=== PATIENT | male | born 1960 | race American Indian/Alaskan Native ===

== ENCOUNTER 2020-09-03 09:11 | Emergency (ER) | payer OTHER ==
[2020-09-03] MEDS ORDERED: methylPREDNISolone Sod Succinate 125 MG/2 ML INJ IV ONE (10:10)
[2020-09-03] MEDS ORDERED: IPRATROPIUM/ALBUTEROL SULFATE 3 ML AMPUL.NEB IH ONE ×2 (10:10→15:52)
--- NOTE | 2020-09-03 10:12 | Emergency Department Report ---
ED Chest Pain HPI - General Chief Complaint: Dyspnea/Respdistress Stated Complaint: CLIFTON Time Seen by Provider: 09/03/20 09:58 Source: patient Mode of arrival: Ambulatory Limitations: No Limitations - History of Present Illness Initial Comments: This is a 60-year-old -[place] male presents to the emergency department with complaint of a 2-day history of shortness of breath. Patient denies any chest pain but does say that the chest feels tight. He admits to some wheezing and mixed dry and productive cough. The patient says that he has chronic issues with sinus congestion. He was cleaning his grill 2 days ago and use some type of chemical that he says he inhaled and it caused a worsening of this recent shortness of breath. He tried some Sridevi and Tylenol for his symptoms without any relief. He is a tobacco smoker but denies any illicit drug use. He has a past medical history of hypertension and does present with elevated blood pressure. He said that he has not been taking his blood pressure medication for years but was previously on Diovan. No recent travel or sick contacts at home. He denies any fever, lower extremity swelling, nausea, vomiting, back pain or diaphoresis. Severity scale (0 -10): 8 - Related Data Previous Rx's Medication Instructions Recorded Last Taken Type Furosemide [Lasix] 20 mg PO QDAY #5 tablet 09/03/20 Unknown Rx hydrALAZINE [Apresoline TAB] 25 mg PO Q8HR #30 tab 09/03/20 Unknown Rx Allergies Allergy/AdvReac Type Severity Reaction Status Date / Time No Known Allergies Allergy Verified 09/03/20 09:20 Heart Score - HEART Score History: Slightly suspicious EKG: Normal Age: 45-65 Risk factors: 1-2 risk factors Troponin: < normal limit HEART Score: 2 - EKG Read Time Time EKG Completed: 09:53 EKG Read Time: 09:55 ED Review of Systems ROS: Stated complaint: CLIFTON Other details as noted in HPI Comment: All other systems reviewed and negative Constitutional: denies: chills, fever Eyes: denies: eye pain, vision change ENT: denies: ear pain, throat pain Respiratory: cough, shortness of breath Cardiovascular: chest pain (tightness). denies: palpitations, edema Gastrointestinal: denies: abdominal pain, vomiting Genitourinary: denies: dysuria, discharge Musculoskeletal: denies: back pain, arthralgia Skin: denies: rash, lesions Neurological: denies: headache, weakness ED Past Medical Hx - Past Medical History Hx Hypertension: Yes - Surgical History Hx Appendectomy: Yes Additional Surgical History: mcl - Social History Smoking Status: Never Smoker - Medications Home Medications: Home Medications Medication Instructions Recorded Confirmed Last Taken Type Furosemide [Lasix] 20 mg PO QDAY #5 tablet 09/03/20 Unknown Rx hydrALAZINE [Apresoline TAB] 25 mg PO Q8HR #30 tab 09/03/20 Unknown Rx ED Physical Exam - General Limitations: No Limitations - Other Other exam information: GENERAL: The patient is well-developed well-nourished. HENT: Normocephalic. Atraumatic. Patient has moist mucous membranes. EYES: Extraocular motions are intact. NECK: Supple. Trachea is midline. CHEST/LUNGS: Slightly coarse breath sounds. No tachypnea or accessory muscle use. There is no respiratory distress noted. HEART/CARDIOVASCULAR: Regular. There is no tachycardia. There is no murmur. ABDOMEN: Abdomen is soft, nontender. Patient has normal bowel sounds. Obese habitus. SKIN: Skin is warm and dry. 2+ pitting edema to the bilateral lower extremities. NEURO: The patient is awake, alert, and oriented. The patient is cooperative. The patient has no focal neurologic deficits. Normal speech. MUSCULOSKELETAL: There is no tenderness or deformity. There is no limitation range of motion. ED Course Vital Signs 09/03/20 09/03/20 09/03/20 09:28 10:18 10:37 Temperature 99.9 F H Pulse Rate 102 H Pulse Rate [ 87 Anterior Bilateral Throughout] Respiratory 24 26 H Rate Respiratory 26 H Rate [Anterior Bilateral Throughout] Blood Pressure 215/100 [Right] O2 Sat by Pulse 91 96 Oximetry 09/03/20 14:12 Temperature Pulse Rate 88 Pulse Rate [ Anterior Bilateral Throughout] Respiratory 24 Rate Respiratory Rate [Anterior Bilateral Throughout] Blood Pressure 160/110 [Right] O2 Sat by Pulse 99 Oximetry ALEXA score - Alexa Score Age > 65: (0) No Aspirin use within the Past 7 Days: (0) No 3 or more CAD Risk Factors: (0) No 2 or more Angina events in past 24 hrs: (1) Yes Known CAD with more than 50% Stenosis: (0) No Elevated Cardiac Markers: (0) No ST Deviation Greater than 0.5mm: (0) No ALEXA Score: 1 ED Medical Decision Making - Lab Data Result diagrams: 09/03/20 10:29 09/03/20 10:29 Lab Results 09/03/20 09/03/20 09/03/20 Range/Units 10:29 10:29 10:29 WBC 10.3 (4.5-11.0) K/mm3 RBC 4.49 (3.65-5.03) M/mm3 Hgb 13.0 (11.8-15.2) gm/dl Hct 39.3 (35.5-45.6) % MCV 88 (84-94) fl MCH 29 (28-32) pg MCHC 33 (32-34) % RDW 16.1 H (13.2-15.2) % Plt Count 187 (140-440) K/mm3 Lymph % (Auto) 8.7 L (13.4-35.0) % [place] % (Auto) 6.9 (0.0-7.3) % Eos % (Auto) 0.4 (0.0-4.3) % Baso % (Auto) 0.4 (0.0-1.8) % Lymph # (Auto) 0.9 L (1.2-5.4) K/mm3 [place] # (Auto) 0.7 (0.0-0.8) K/mm3 Eos # (Auto) 0.0 (0.0-0.4) K/mm3 Baso # (Auto) 0.0 (0.0-0.1) K/mm3 Seg Neutrophils % 83.6 H (40.0-70.0) % Seg Neutrophils # 8.6 H (1.8-7.7) K/mm3 D-Dimer 241.11 H (0-234) ng/mlDDU Sodium 137 (137-145) mmol/L Potassium 4.5 (3.6-5.0) mmol/L Chloride 102.8 (98-107) mmol/L Carbon Dioxide 25 (22-30) mmol/L Anion Gap 14 mmol/L BUN 16 (9-20) mg/dL Creatinine 1.4 H (0.8-1.3) mg/dL Estimated GFR > 60 ml/min BUN/Creatinine Ratio 11 % Glucose 96 (75-100) mg/dL Calcium 9.3 (8.4-10.2) mg/dL Troponin T < 0.010 (0.00-0.029) ng/mL NT-Pro-B Natriuret Pep 1431 H (0-900) pg/mL 09/03/20 Range/Units 13:42 WBC (4.5-11.0) K/mm3 RBC (3.65-5.03) M/mm3 Hgb (11.8-15.2) gm/dl Hct (35.5-45.6) % MCV (84-94) fl MCH (28-32) pg MCHC (32-34) % RDW (13.2-15.2) % Plt Count (140-440) K/mm3 Lymph % (Auto) (13.4-35.0) % [place] % (Auto) (0.0-7.3) % Eos % (Auto) (0.0-4.3) % Baso % (Auto) (0.0-1.8) % Lymph # (Auto) (1.2-5.4) K/mm3 [place] # (Auto) (0.0-0.8) K/mm3 Eos # (Auto) (0.0-0.4) K/mm3 Baso # (Auto) (0.0-0.1) K/mm3 Seg Neutrophils % (40.0-70.0) % Seg Neutrophils # (1.8-7.7) K/mm3 D-Dimer (0-234) ng/mlDDU Sodium (137-145) mmol/L Potassium (3.6-5.0) mmol/L Chloride (98-107) mmol/L Carbon Dioxide (22-30) mmol/L Anion Gap mmol/L BUN (9-20) mg/dL Creatinine (0.8-1.3) mg/dL Estimated GFR ml/min BUN/Creatinine Ratio % Glucose (75-100) mg/dL Calcium (8.4-10.2) mg/dL Troponin T < 0.010 (0.00-0.029) ng/mL NT-Pro-B Natriuret Pep (0-900) pg/mL - EKG Data EKG shows normal: sinus rhythm, axis (Left axis deviation), intervals, QRS complexes, ST-T waves Rate: normal - EKG Data When compared to previous EKG there are: previous EKG unavailable Interpretation: other (Sinus rhythm at 86 bpm, left axis deviation. No ST elevation MD.) - Radiology Data Radiology results: image reviewed interpreted by me: Chest x-ray shows some mild cardiomegaly. No pneumonia, pleural effusions, pneumothorax. - Medical Decision Making This patient presents to the emergency department with a few days of shortness of breath. Patient denies chest pain but does describe some tightness that seems like it is more respiratory in nature. The patient did not have any complaints of lower extremity swelling, however on examination the patient does have 2+ pitting edema to the bilateral lower extremities. Chest x-ray does not show any pneumonia, pleural effusions, pneumothorax, or any other acute process. EKG did not have any morphology consistent with ST elevation myocardial infarction. The patient's labs have been mostly unremarkable including CBC, metabolic panel, negative troponins x2, - D-dimer, but the patient did have an elevated proBNP of about 1400. The patient also presented with very elevated blood pressure. He does have a history of hypertension and admits to medication noncompliance over the past 2 to 3 years. This is also the last time that the patient followed up with a primary care physician regularly, despite the fact that he has [facility] insurance. He was given a breathing treatment and upon reevaluation says he is feeling greatly improved. He was given a dose of Lasix and has started to diurese. I spoke to Dr. Barragan, a physician at the [facility]. She agrees with the plan for restarting the patient on antihypertensive medication, giving a few days of Lasix, and says that they can arrange outpatient follow-up with primary care and possibly cardiology as soon as tomorrow. The patient and I discussed all of his lab and imaging results. We discussed the plan for outpatient follow-up and the medications that will be prescribed. We also had a long conversation about smoking cessation. The patient will return to the emergency department with any worsening of his symptoms or with any acute distress. Critical Care Time: No Critical care attestation.: If time is entered above; I have spent that time in minutes in the direct care of this critically ill patient, excluding procedure time. ED Disposition Clinical Impression: Bilateral lower extremity edema, Chest tightness Hypertension Qualifiers: Hypertension type: essential hypertension Qualified Code(s): I10 - Essential (primary) hypertension Dyspnea Qualifiers: Dyspnea type: shortness of breath Qualified Code(s): R06.02 - Shortness of breath; R06.00 - Dyspnea, unspecified; R06.01 - Orthopnea Disposition: DC- TO HOME OR SELFCARE Is pt being admited?: No Condition: Stable Instructions: Nonspecific Chest Pain, Adult, Shortness of Breath, Adult, Hypertension, Adult, Hypertension (ED) Additional Instructions: Someone from [facility] should be calling you tomorrow to set up an appointment with a primary care physician and possibly cardiology. I am starting you on a blood pressure medication called hydralazine. This take take this medication by mouth every 8 hours. Try to stay away from foods that are high in salt and caffeinated products. Keep a blood pressure log. I am giving you a few days worth of Lasix/furosemide. This medication will help take some of the fluid off of your legs. Please quit smoking immediately. Return to the emergency department with any worsening of your symptoms, new or concerning symptoms not addressed during this current emergency department visit, or with any acute distress. Prescriptions: hydrALAZINE [Apresoline TAB] 25 mg PO Q8HR #30 tab Furosemide [Lasix] 20 mg PO QDAY #5 tablet Referrals: PRIMARY CAREMD [Primary Care Provider] - 2-3 Days Time of Disposition: 15:15
--- NOTE | 2020-09-03 10:46 | XRay Report ---
CHEST 1 VIEW 09/03/2020 9:28 AM INDICATION / CLINICAL INFORMATION: Chest pain. COMPARISON: None available. FINDINGS: SUPPORT DEVICES: None. HEART / MEDIASTINUM: The heart size is borderline with a left ventricular configuration. Pulmonary va sculature is normal. The aorta is normal in caliber. LUNGS / PLEURA: No significant pulmonary or pleural abnormality. No pneumothorax. ADDITIONAL FINDINGS: There is mild lower thoracic spondylosis. IMPRESSION: No acute findings. Signer Name: Romero Stone MD Signed: 09/03/2020 10:42 AM Workstation Name: [id number]
[2020-09-03 10:51] LABS: Basophils % (Auto) 0.4 % (0.0-1.8); Eosinophils % (Auto) 0.4 % (0.0-4.3); Hematocrit 39.3 % (35.5-45.6); Lymphocytes # (Auto) 0.9 K/mm3 (1.2-5.4); Lymphocytes % (Auto) 8.7 % (13.4-35.0); Mean Corpuscular HGB Conc 33 % (32-34); Mean Corpuscular Volume 88 fl (84-94); Monocytes # (Auto) 0.7 K/mm3 (0.0-0.8); Monocytes % (Auto) 6.9 % (0.0-7.3); Platelet Count 187 K/mm3 (140-440); Red Blood Count 4.49 M/mm3 (3.65-5.03); Red Cell Distribution Width 16.1 % (13.2-15.2)
[2020-09-03 11:10] LABS: BUN/Creatinine Ratio 11; Blood Urea Nitrogen 16 mg/dL (9-20); Calcium 9.3 mg/dL (8.4-10.2); Hemolysis Index 5
[2020-09-03] MEDS ORDERED: hydrALAZINE 20 MG/1 ML INJ IV ONE (11:40)
[2020-09-03] MEDS ORDERED: FUROSEMIDE 40 MG/4 ML INJ IV ONE ×2 (11:45→14:00)
[2020-09-03 16:49] VITALS: BP 166/70
--- NOTE | 2020-09-04 11:27 | Electrocardiograph Report ---
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
== END 2020-09-03 16:50 | disposition home or self-care (01) ==
LOC: ED 09:11
DX: R60.0 Localized edema (principal); R06.00 Dyspnea, unspecified; I10 Essential (primary) hypertension; Z90.49 Acquired absence of other specified parts of digestive tract; Z79.899 Other long term (current) drug therapy
CPT/HCPCS: 36415; 71045; 80048; 83880; 84484; 85025; 85379; 93005; 94640; 96374; 96375; 99284; J1940; J2930; 94644

== ENCOUNTER 2020-09-11 15:27 | Emergency (ER) | payer OTHER ==
[2020-09-11] MEDS ORDERED: hydrALAZINE 25 MG TAB PO ONE (16:02)
[2020-09-11 16:19] LABS: Basophils % (Auto) 0.6 % (0.0-1.8); Eosinophils # (Auto) 0.1 K/mm3 (0.0-0.4); Hematocrit 40.9 % (35.5-45.6); Hemoglobin 13.5 gm/dl (11.8-15.2); Lymphocytes % (Auto) 28.4 % (13.4-35.0); Mean Corpuscular HGB Conc 33 % (32-34); Mean Corpuscular Volume 88 fl (84-94); Monocytes # (Auto) 0.6 K/mm3 (0.0-0.8); Monocytes % (Auto) 8.7 % (0.0-7.3); Platelet Count 213 K/mm3 (140-440); Red Blood Count 4.62 M/mm3 (3.65-5.03); Red Cell Distribution Width 15.3 % (13.2-15.2)
--- NOTE | 2020-09-11 16:31 | Cat Scan Report ---
CT HEAD WITHOUT CONTRAST INDICATION / CLINICAL INFORMATION: right facial droop, unable to lift right eyebrow. TECHNIQUE: Axial imaging performed from the skull apex through the skull base without the use of cont rast. Sagittal and coronal reformatted images. All CT scans at this location are performed using CT dose reduction for ALARA by means of automated exposure control. COMPARISON: None available. FINDINGS: CEREBRAL PARENCHYMA: No significant abnormality. Minimal chronic white matter changes are noted. No a cute territorial infarct. HEMORRHAGE: None. EXTRA-AXIAL SPACES: Normal in size and morphology for the patient's age. VENTRICULAR SYSTEM: Normal in size and morphology for the patient's age. MIDLINE SHIFT OR HERNIATION: None. CEREBELLUM / BRAINSTEM: No significant abnormality. CALVARIUM: No significant abnormality. ORBITS: Normal as visualized. PARANASAL SINUSES / MASTOID AIR CELLS: Mild chronic mucosal thickening is noted in the inferior maxil rajeev sinuses and sphenoid sinuses. The remaining sinuses and mastoid air cells are clear. SOFT TISSUES of HEAD: No significant abnormality. ADDITIONAL FINDINGS: None. IMPRESSION: Cranial CT scan within normal limits. Mild chronic sinus disease as described. Signer Name: Denis Banks Jr, MD Signed: 09/11/2020 4:26 PM Workstation Name: [id number]
[2020-09-11 16:49] LABS: Alanine Aminotransferase 23 units/L (7-56); BUN/Creatinine Ratio 15; Blood Urea Nitrogen 18 mg/dL (9-20); Calcium 8.8 mg/dL (8.4-10.2); Hemolysis Index 19
--- NOTE | 2020-09-11 16:58 | Emergency Department Report ---
ED General Adult HPI - General Chief complaint: Neuro Symptoms/Deficit Stated complaint: POSS ALLERGIC REACTION Time Seen by Provider: 09/11/20 15:50 Source: patient Mode of arrival: Ambulatory Limitations: No Limitations - History of Present Illness Initial comments: Patient is a 60-year-old male presents emergency room with complaints of right- sided mouth numbness that began yesterday at 4 PM. He states that it feels like he has been injected with Novocain. He states initially he believed he was having an allergic reaction. He states he has been on hydralazine since 09/03/2020. He has not had any symptoms at all while taking the hydralazine and just believe that due to being a new medication he thought that was the reason. He denies any headache, vision changes bilateral upper extremity or lower extremity weakness or numbness, gait disturbance, chest pain, shortness of breath. He states it is almost time for him to take another dose of his hydralazine. He has a history of hypertension. No allergies to medications. - Related Data Previous Rx's Medication Instructions Recorded Last Taken Type Albuterol Mdi (or & Nicu Only) 2 puff IH QID PRN #8.5 gram 09/03/20 Unknown Rx [ProAir HFA Inhaler] Furosemide [Lasix] 20 mg PO QDAY #5 tablet 09/03/20 Unknown Rx hydrALAZINE [Apresoline TAB] 25 mg PO Q8HR #30 tab 09/03/20 Unknown Rx Valacyclovir HCl [Valacyclovir] 1,000 mg PO TID 7 Days #21 tablet 09/11/20 Unknown Rx predniSONE [Deltasone] 60 mg PO QDAY 7 Days #21 tab 09/11/20 Unknown Rx Allergies Allergy/AdvReac Type Severity Reaction Status Date / Time No Known Allergies Allergy Verified 09/03/20 09:20 ED Review of Systems ROS: Stated complaint: POSS ALLERGIC REACTION Other details as noted in HPI Comment: All other systems reviewed and negative ED Past Medical Hx - Past Medical History Hx Hypertension: Yes - Surgical History Hx Appendectomy: Yes Additional Surgical History: mcl - Social History Smoking Status: Never Smoker - Medications Home Medications: Home Medications Medication Instructions Recorded Confirmed Last Taken Type Albuterol Mdi (or & Nicu Only) 2 puff IH QID PRN #8.5 gram 09/03/20 Unknown Rx [ProAir HFA Inhaler] Furosemide [Lasix] 20 mg PO QDAY #5 tablet 09/03/20 Unknown Rx hydrALAZINE [Apresoline TAB] 25 mg PO Q8HR #30 tab 09/03/20 Unknown Rx Valacyclovir HCl [Valacyclovir] 1,000 mg PO TID 7 Days #21 tablet 09/11/20 Unknown Rx predniSONE [Deltasone] 60 mg PO QDAY 7 Days #21 tab 09/11/20 Unknown Rx ED Physical Exam - General Limitations: No Limitations General appearance: alert, in no apparent distress - Head Head exam: Present: atraumatic, normocephalic - Eye Eye exam: Present: PERRL, EOMI - ENT ENT exam: Present: mucous membranes moist - Respiratory Respiratory exam: Present: normal lung sounds bilaterally. Absent: respiratory distress, wheezes, rales, rhonchi, stridor, chest wall tenderness, accessory muscle use, decreased breath sounds, prolonged expiratory - Cardiovascular Cardiovascular Exam: Present: regular rate, normal rhythm, normal heart sounds. Absent: systolic murmur, diastolic murmur, rubs, gallop - Neurological Exam Neurological exam: Present: alert, oriented X3, normal gait, other (right sided facial droop, unable to completely close right eye, unable to raise right eyebrow, decreased sensation to right face, 5/5 muscle strength in the BUE/BLE, sensation intact in the BUE/BLE) - Psychiatric Psychiatric exam: Present: normal affect, normal mood - Skin Skin exam: Present: warm, dry, intact ED Course Vital Signs 09/11/20 09/11/20 09/11/20 15:44 16:47 18:09 Temperature 98.3 F Pulse Rate 82 82 82 Respiratory 22 22 Rate Blood Pressure 190/107 190/107 Blood Pressure 182/96 [Left] O2 Sat by Pulse 96 98 Oximetry ED Medical Decision Making - Lab Data Result diagrams: 09/11/20 15:54 09/11/20 15:54 Lab Results 09/11/20 09/11/20 Range/Units 15:54 15:54 WBC 7.1 (4.5-11.0) K/mm3 RBC 4.62 (3.65-5.03) M/mm3 Hgb 13.5 (11.8-15.2) gm/dl Hct 40.9 (35.5-45.6) % MCV 88 (84-94) fl MCH 29 (28-32) pg MCHC 33 (32-34) % RDW 15.3 H (13.2-15.2) % Plt Count 213 (140-440) K/mm3 Lymph % (Auto) 28.4 (13.4-35.0) % [place] % (Auto) 8.7 H (0.0-7.3) % Eos % (Auto) 2.0 (0.0-4.3) % Baso % (Auto) 0.6 (0.0-1.8) % Lymph # (Auto) 2.0 (1.2-5.4) K/mm3 [place] # (Auto) 0.6 (0.0-0.8) K/mm3 Eos # (Auto) 0.1 (0.0-0.4) K/mm3 Baso # (Auto) 0.0 (0.0-0.1) K/mm3 Seg Neutrophils % 60.3 (40.0-70.0) % Seg Neutrophils # 4.3 (1.8-7.7) K/mm3 Sodium 139 (137-145) mmol/L Potassium 4.4 (3.6-5.0) mmol/L Chloride 106.1 (98-107) mmol/L Carbon Dioxide 24 (22-30) mmol/L Anion Gap 13 mmol/L BUN 18 (9-20) mg/dL Creatinine 1.2 (0.8-1.3) mg/dL Estimated GFR > 60 ml/min BUN/Creatinine Ratio 15 % Glucose 97 (75-100) mg/dL Calcium 8.8 (8.4-10.2) mg/dL Total Bilirubin 0.20 (0.1-1.2) mg/dL AST 17 (5-40) units/L ALT 23 (7-56) units/L Alkaline Phosphatase 80 (35-129) units/L Total Protein 7.0 (6.3-8.2) g/dL Albumin 4.0 (3.9-5) g/dL Albumin/Globulin Ratio 1.3 % Vital Signs 09/11/20 09/11/20 09/11/20 15:44 16:47 18:09 Temperature 98.3 F Pulse Rate 82 82 82 Respiratory 22 22 Rate Blood Pressure 190/107 190/107 Blood Pressure 182/96 [Left] O2 Sat by Pulse 96 98 Oximetry - Radiology Data Radiology results: report reviewed CT HEAD WITHOUT CONTRAST INDICATION / CLINICAL INFORMATION: right facial droop, unable to lift right eyebrow. TECHNIQUE: Axial imaging performed from the skull apex through the skull base without the use of contrast. Sagittal and coronal reformatted images. All CT scans at this location are performed using CT dose reduction for ALARA by means of automated exposure control. COMPARISON: None available. FINDINGS: CEREBRAL PARENCHYMA: No significant abnormality. Minimal chronic white matter changes are noted. No acute territorial infarct. HEMORRHAGE: None. EXTRA-AXIAL SPACES: Normal in size and morphology for the patient's age. VENTRICULAR SYSTEM: Normal in size and morphology for the patient's age. MIDLINE SHIFT OR HERNIATION: None. CEREBELLUM / BRAINSTEM: No significant abnormality. CALVARIUM: No significant abnormality. ORBITS: Normal as visualized. PARANASAL SINUSES / MASTOID AIR CELLS: Mild chronic mucosal thickening is noted in the inferior maxillary sinuses and sphenoid sinuses. The remaining sinuses and mastoid air cells are clear. SOFT TISSUES of HEAD: No significant abnormality. ADDITIONAL FINDINGS: None. IMPRESSION: Cranial CT scan within normal limits. Mild chronic sinus disease as described. Signer Name: Denis Banks Jr, MD Signed: 09/11/2020 4:26 PM Workstation Name: [id number] Transcribed By: TTR Dictated By: DENIS BANKS JR, MD Electronically Authenticated By: DENIS BANKS JR, MD Signed Date/Time: 09/11/201625 DD/ 24 TD/TT: Print - Medical Decision Making Patient is a 60-year-old male presents emergency room with complaints of right- sided mouth numbness that began yesterday at 4 PM. He states that it feels like he has been injected with Novocain. He states initially he believed he was having an allergic reaction. He states he has been on hydralazine since 09/03/2020. He has not had any symptoms at all while taking the hydralazine and just believe that due to being a new medication he thought that was the reason. He denies any headache, vision changes bilateral upper extremity or lower extremity weakness or numbness, gait disturbance, chest pain, shortness of breath. He states it is almost time for him to take another dose of his hydralazine. He has a history of hypertension. No allergies to medications. Vitals with elevated blood pressure, otherwise stable. On exam:right sided facial droop, unable to completely close right eye, unable to raise right eyebrow, decreased sensation to right face, 5/5 muscle strength in the BUE/BLE, sensation intact in the BUE/BLE. 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 Patient given his home dose of his hydralazine with mild improvement of blood pressure. Given patient's risk factors, labs and CT ordered and are within normal limits. Discussed all results with patient and answered questions. Patient's medication treatment is written according to the up-to-date medical literature. Advised patient Please take medication as prescribed. Increase your water intake. Please get lubricating eyedrops [id number] and use them 4 times a day. Follow-up with a primary care doctor. Follow-up with a neurologist. Please keep a blood pressure log and take your blood pressure twice a day and take this to your primary care doctor. Eat a low-sodium diet. Incorporate 30 to 60 minutes of daily exercise. Return to emergency room for new or worsening symptoms. Critical care attestation.: If time is entered above; I have spent that time in minutes in the direct care of this critically ill patient, excluding procedure time. ED Disposition Clinical Impression: Henson's palsy Hypertension Qualifiers: Hypertension type: essential hypertension Qualified Code(s): I10 - Essential (primary) hypertension Disposition: DC-01 TO HOME OR SELFCARE Is pt being admited?: No Does the pt Need Aspirin: No Condition: Stable Instructions: Henson Palsy, Adult, Low-Sodium Eating Plan, Hypertension, Adult, Hypertension (ED) Additional Instructions: Please take medication as prescribed. Increase your water intake. Please get lubricating eyedrops [id number] and use them 4 times a day. Follow-up with a primary care doctor. Follow-up with a neurologist. Please keep a blood pressure log and take your blood pressure twice a day and take this to your primary care doctor. Eat a low-sodium diet. Incorporate 30 to 60 minutes of daily exercise. Return to emergency room for new or worsening symptoms. Prescriptions: predniSONE [Deltasone] 60 mg PO QDAY 7 Days #21 tab Valacyclovir HCl [Valacyclovir] 1,000 mg PO TID 7 Days #21 tablet Referrals: DENAE HAMM MD [Staff Physician] - 2-3 Days [facility] [Provider Group] - 2-3 Days PHYLLIS SHERMAN MD [Referring] - 2-3 Days Forms: Work/School Release Form(ED) Time of Disposition: 18:18 Print Language: [place] CITIZEN
[2020-09-11 18:09] VITALS: BP 182/96
== END 2020-09-11 19:12 | disposition home or self-care (01) ==
LOC: ED 15:27
DX: I10 Essential (primary) hypertension (principal); G51.0 Bell's palsy; Z79.899 Other long term (current) drug therapy
CPT/HCPCS: 36415; 70450; 80053; 85025